=== PATIENT | male | born 1995 | race Caucasian/White ===

== ENCOUNTER 2018-05-27 08:11 | Emergency (ER) | payer MEDICAID ==
[~2018-05-27] VITALS: Ht 193 cm; Wt 152.8 kg
[2018-05-27 08:32] VITALS: BP 131/85
[2018-05-27] MEDS ORDERED: AZIT250T83 PO (10:20)
[2018-05-27] MEDS ORDERED: PRED20TA PO (10:20)
== END 2018-05-27 10:38 | disposition home or self-care (01) ==
LOC: ER 08:12
DX: J06.9 Acute upper respiratory infection, unspecified (principal); Z79.899 Other long term (current) drug therapy
CPT/HCPCS: 71046; 87081; 87880; 99284

== ENCOUNTER 2019-02-23 05:46 | Emergency (ER) | payer MEDICAID ==
[~2019-02-23] VITALS: Ht 193 cm; Wt 165.9 kg
[2019-02-23 05:53] VITALS: BP 155/101
[2019-02-23] MEDS ORDERED: CLIN150C8 PO (06:21)
[2019-02-23] MEDS ORDERED: IBUP-1986 PO (06:24)
== END 2019-02-23 06:38 | disposition home or self-care (01) ==
LOC: ER 05:47
DX: H60.91 Unspecified otitis externa, right ear (principal); F10.99 Alcohol use, unspecified with unspecified alcohol-induced disorder; Z88.0 Allergy status to penicillin; Z79.899 Other long term (current) drug therapy; Y90.9 Presence of alcohol in blood, level not specified
CPT/HCPCS: 99283

== ENCOUNTER 2019-08-21 01:28 | Emergency (ER) | payer MEDICAID ==
[~2019-08-21] VITALS: Ht 193 cm; Wt 135.3 kg
[~2019-08-21 01:28] MED LIST: CLIN150C8 PO; IBUP-1986 PO
[2019-08-21 01:53] VITALS: BP 142/100
[2019-08-21] MEDS ORDERED: ibuprofen tablet 400 MG TABLET PO ONE ×2 (01:55→02:20)
[2019-08-21] MEDS ORDERED: CIPR10DR LEFT EAR (01:56)
== END 2019-08-21 02:20 | disposition home or self-care (01) ==
LOC: ER 01:28
DX: H60.8X2 Other otitis externa, left ear (principal); Z72.89 Other problems related to lifestyle; Z88.0 Allergy status to penicillin; Z79.899 Other long term (current) drug therapy; Z72.0 Tobacco use
CPT/HCPCS: 99283